=== PATIENT | male | born 1980 | race Caucasian/White ===

== ENCOUNTER 2016-10-12 13:46 | Emergency (ER) | payer SELFPAY ==
[2016-10-12 13:54] VITALS: BP 162/102; PULSE 70; TEMP 99.1; BMI 32.3
[2016-10-12] MEDS ORDERED: NS 1,000 ML IV ONE ×2 (14:02)
[2016-10-12] MEDS ORDERED: SODIUM CHLORIDE 0.9% 3 ML FLUSH FLUSH PRN (14:02)
[2016-10-12] MEDS ORDERED: ONDANSETRON HCL 4 MG/2 ML VIAL IV ONE (14:02)
[2016-10-12] MEDS ORDERED: HYDROmorphone 1 MG INJECTION IV ONE (14:02)
--- NOTE | 2016-10-12 14:09 | EDPRACDOC ---
- General Information Chief Complaint: Abdominal Pain Stated Complaint: KIDNEY STONE WITH RT ABD PAIN Time Seen by Provider: 10/12/16 13:57 Information Source: Patient Mode Of Arrival: Car Home Medications: Home Medications Ketorolac Tromethamine [Toradol] 10 mg PO Q6H PRN #15 tab 10/12/16 Ondansetron [Zofran Odt] 4 mg PO Q6H #20 tab.rapdis 10/12/16 Oxycodone Immediate Release [Oxycodone Immediate Release (OxyIR)] 5 mg PO Q4H PRN #15 tab 10/12/16 Allergies/Adverse Reactions: Allergies Allergy/AdvReac Type Severity Reaction Status Date / Time No Known Allergies Allergy Verified 10/12/16 13:54 - History of Present Illness Onset: 3 DAYS HPI: PT STATES STARTED HAVING RT FLANK AND LOWER QUAD PAIN WITH NAUSEA. PT STATES HAS LONG H/O KIDNEY STONES AND THIS FEELS THE SAME. Pain Location: Reports: RLQ, Flank (RT) Pain Context: Reports: Spontaneous Pain Severity: Moderate Pain Quality: Reports: Sharp, Stabbing Adult Abdominal History: Denies: Urolithiasis, Bowel Obstruction Modifying Factors: improves with: Nothing Associated Signs & Symptoms: Reports: Nausea, Urgency Oral Intake: Decreased Urinary Output: Decreased (AMOUNT GOING FREQUENTLY) ED Past Medical History - History Reviewed Yes Nurses notes reviewed and agree except as marked Travel Outside of [place] in the Last 3 Months?: No - Patient Medical History GI/ History: Reports: Kidney Stones, Gastroesophageal Reflux Psychological History: Denies: Depression - Social Medical History Smoking Status: Heavy tobacco smoker (5 or more cigarettes/day or daily pipe/ cigar) ETOH: None Substance Abuse: None Lives With: Other Lives In: Home EDM Review of Systems - Review of Systems ROS Negative Except as Marked: Yes All systems reviewed and were negative except as marked Constitutional: No Symptoms Reported. negative: Fever, Chills, Weakness, Fatigue, Loss of Appetite Eyes: No Symptoms Reported. negative: Redness, Blurred Vision, Double Vision, Discharge, Pain, Light Sensitive, Photophobia Ears: No Symptoms Reported. negative: Pain, Hearing Loss, Drainage, Ear Pulling Throat: No Symptoms Reported. negative: Pain, Swelling Nose: No Symptoms Reported. negative: Congestion, Bleeding, Discharge, Injection, Swelling, Deformity, Ecchymosis, Tender, Abrasion, Laceration Mouth: No Symptoms Reported. negative: Pain, Drooling Respiratory: No Symptoms Reported. negative: Cough, Brassy Cough, Barky Cough, Shortness of Breath, Wheezing, Hemoptysis Cardiovascular: No Symptoms Reported. negative: Chest Pain, Palpitations, Syncope, Edema, Orthopnea, PND, Skin Mottling, Cyanosis Gastrointestinal: Nausea. negative: Constipation, Diarrhea, Formula Intolerance , Melena, Pain, Vomiting Genitourinary: Frequency, Flank Pain (RT), Urgency to urinate. negative: Bleeding, Dysuria, Discharge, Hematuria, , Testicular Pain Neurological: No Symptoms Reported. negative: Headache, Dizziness, Seizure, Numbness, Weakness, Speech Difficulty, Gait Difficulty Musculoskeletal: No Symptoms Reported. negative: Neck, Chestwall, Ribs, Back, Shoulder, Arm, Elbow, Forearm, Wrist, Hand, Pelvis, Hip, Femur, Knee, Leg, Ankle , Foot Integumentary: No Symptoms Reported. negative: Itching, Rash, Bruising, Wound Allergic/Immunologic: No Symptoms Reported. negative: Hives, Itching Hematologic: No Symptoms Reported. negative: Lymphadenopathy, Easy Bruising, Easy Bleeding Endocrine: No Symptoms Reported. negative: Weight Gain, Weight Loss Psychiatric: No Symptoms Reported. negative: Anxiety, Depression, Hallucinations, Insomnia, Suicidal - Physical Exam Constitutional: Alert (Awake), Other (UNCOMFORTABLE) Oriented to: Time, Person, Place Last recorded Vital Signs: Last Vital Signs Temp 99.1 F 10/12/16 13:51 Pulse 70 10/12/16 13:51 Resp 20 10/12/16 13:51 BP 162/102 H 10/12/16 13:51 Pulse Ox 98 10/12/16 13:51 Oxygen Pulse Oxygen Saturation 98 O2 Device Oxygen Flow Rate Fraction of Inspired Oxygen ( FIO2) - HEENT Head: Normal ( normocephalic) Eye Exam: Normal (PERRL, EOMI, Sclera white) Oropharynx: Normal (Pharynx:Moist without exudate,Gums-no swelling) Tympanic Membrane: Normal ENT EAC: Normal TMJ: Normal Nose: No Symptoms Reported (septum midline) Neck: Normal (FROM, trachea at midline) - Respiratory/Cardiovascular Respiratory: Normal - CTA (BBS clear to auscultation without adventitious sounds ) Cardiovascular: Normal (RRR without murmur, gallop or rub) - GI Auscultation: Normal (NABS) Palpation: Normal (Soft,No rebound or guarding, non distended) Tenderness: Non tender Li's Sign: Negative - Musculoskeletal Back: Normal (Non-Tender) Extremities: Normal (Normal tone, Pulses 2+ No cyanosis or edema, FROM) - Integumentary Skin: Normal, Warm, Dry Lymphatics: Normal (no adenopathy) - Neurologic Memory Impaired: Normal Motor Function: Normal (Normal tone, Pulses 2+ No cyanosis or edema, FROM) Cranial Nerve: Normal (CN II-X11 intact sensation, strength 5/5) Cerebellar: Normal Mood Description: Normal Perception: Normal - Differential Diagnosis Constipation, Urolithiasis, Ureterolithiasis - Re-evaluation Re-evaluation 1 Re-evaluation Time: 15:46 (PT STATES THE PAIN IS BETTER, NO N/V AT THIS TIME. READY TO GO HOME) - Results 10/12/16 14:20 10/12/16 14:20 WBC 9.2 xk/uL (3.8-10.8) 10/12/16 14:20 RBC 4.78 xM/uL (4.70-6.10) 10/12/16 14:20 Hgb 14.0 g/dL (14.0-18.0) 10/12/16 14:20 Hct 40.4 % (42-52) L 10/12/16 14:20 MCV 85 fL (80-94) 10/12/16 14:20 MCH 29.3 pg (27-32) 10/12/16 14:20 MCHC 34.6 g/dl (33-36) 10/12/16 14:20 RDW 12.9 % (11.5-14.5) 10/12/16 14:20 Plt Count 136 xk/uL (130-400) 10/12/16 14:20 MPV 8.2 fL (7.4-10.4) 10/12/16 14:20 Neut % (Auto) 71.5 % (45-76) 10/12/16 14:20 Lymph % (Auto) 19.8 % (17-44) 10/12/16 14:20 [facility] % (Auto) 6.5 % (3-10) 10/12/16 14:20 Eos % (Auto) 1.7 % (0-5) 10/12/16 14:20 Baso % (Auto) 0.5 % (0-2) 10/12/16 14:20 Absolute Neuts (auto) 6.53 xk/uL (1.7-8.2) 10/12/16 14:20 Absolute Lymphs (auto) 1.75 xk/uL (0.65-4.75) 10/12/16 14:20 Sodium 142 mEq/L (137-146) 10/12/16 14:20 Potassium 4.0 mEq/L (3.5-5.1) 10/12/16 14:20 Chloride 106 mEq/L (98-107) 10/12/16 14:20 Carbon Dioxide 27 mMOL/L (22-33) 10/12/16 14:20 Anion Gap 13 mEq/L (8-16) 10/12/16 14:20 BUN 11 MG/DL (9-20) 10/12/16 14:20 Creatinine 1.00 MG/DL (0.66-1.25) 10/12/16 14:20 Estimated GFR (MDRD) > 60 mL/min (>=60) 10/12/16 14:20 Glucose 102 MG/DL (70-99) H 10/12/16 14:20 Calculated Osmolality 272 MOs/Kg (270-290) 10/12/16 14:20 Calcium 9.1 MG/DL (8.4-10.2) 10/12/16 14:20 Total Bilirubin 0.4 MG/DL (0.2-1.3) 10/12/16 14:20 AST 22 IU/L (17-59) 10/12/16 14:20 ALT 28 IU/L (21-72) 10/12/16 14:20 Alkaline Phosphatase 54 IU/L (38-126) 10/12/16 14:20 Total Protein 7.4 G/DL (6.3-8.2) 10/12/16 14:20 Albumin 4.1 G/DL (3.5-5.0) 10/12/16 14:20 Urine Color Yellow 10/12/16 13:48 Urine Clarity Hazy 10/12/16 13:48 Urine pH 5.0 (5.0-8.0) 10/12/16 13:48 Ur Specific [place] 1.035 10/12/16 13:48 Urine Protein 1+ (NEG/TRACE) H 10/12/16 13:48 Urine Glucose (UA) Neg (NEGATIVE) 10/12/16 13:48 Urine Ketones Neg (NEGATIVE) 10/12/16 13:48 Urine Occult Blood 2+ (NEG/TRACE) H 10/12/16 13:48 Urine Nitrite Neg (NEGATIVE) 10/12/16 13:48 Urine Bilirubin Neg (NEGATIVE) 10/12/16 13:48 Urine Urobilinogen 0.2 MG/DL (0-1) 10/12/16 13:48 Ur Leukocyte Esterase Trace (NEGATIVE) 10/12/16 13:48 Urine RBC Tntc (0-2) H 10/12/16 13:48 Urine WBC 2-5 (0-2) H 10/12/16 13:48 Urine Bacteria Few (NEG/FEW) 10/12/16 13:48 Urine Mucus Mod (NEG/OCC) H 10/12/16 13:48 Lab Results 10/12/16 10/12/16 10/12/16 14:20 14:20 13:48 WBC 9.2 RBC 4.78 Hgb 14.0 Hct 40.4 L MCV 85 MCH 29.3 MCHC 34.6 RDW 12.9 Plt Count 136 MPV 8.2 Neut % (Auto) 71.5 Lymph % (Auto) 19.8 [facility] % (Auto) 6.5 Eos % (Auto) 1.7 Baso % (Auto) 0.5 Absolute Neuts (auto) 6.53 Absolute Lymphs (auto) 1.75 Sodium 142 Potassium 4.0 Chloride 106 Carbon Dioxide 27 Anion Gap 13 BUN 11 Creatinine 1.00 Estimated GFR (MDRD) > 60 Glucose 102 H Calculated Osmolality 272 Calcium 9.1 Total Bilirubin 0.4 AST 22 ALT 28 Alkaline Phosphatase 54 Total Protein 7.4 Albumin 4.1 Urine Color Yellow Urine Clarity Hazy Urine pH 5.0 Ur Specific [place] 1.035 Urine Protein 1+ H Urine Glucose (UA) Neg Urine Ketones Neg Urine Occult Blood 2+ H Urine Nitrite Neg Urine Bilirubin Neg Urine Urobilinogen 0.2 Ur Leukocyte Esterase Trace Urine RBC Tntc H Urine WBC 2-5 H Urine Bacteria Few Urine Mucus Mod H - Diagnostic Imaging CT URO Image interpreted by: Radiologist 10/12/16 15:24 COMPARISON: 06/29/2016 FINDINGS: Lung bases clear. Moderate RIGHT hydronephrosis and proximal RIGHT hydroureter secondary to a 4 mm proximal RIGHT ureteral calculus image 56. Minimal RIGHT perinephric and periureteral edema. No additional urinary tract calcifications. Liver, spleen, pancreas, gallbladder, LEFT kidney, and adrenal glands normal appearance. Bladder and remaining ureters normal. Minimal prostatic enlargement. Small RIGHT inguinal hernia containing fat. Normal appendix. Stomach and bowel loops normal appearance. No mass, adenopathy, free air, free fluid or inflammatory process. Bones unremarkable. IMPRESSION: Moderate RIGHT hydronephrosis and hydroureter secondary to a 4 mm proximal RIGHT ureteral calculus. Small LEFT inguinal hernia containing fat. Decision Time to Discharge: 15:46 - Departure Disposition: Home Condition: Stable Final Diagnosis: Urolithiasis Qualifiers: Urinary calculus location: ureter Qualified Code(s): N20.1 - Calculus of ureter Instructions: Ureteral Stones (ED) Education/Counseling Given To: Patient Education/Counseling Given Regarding: Diagnosis, Treatment, Prognosis, Follow Up Referrals: None,No Provider [Primary Care Provider] - One Week Prescriptions: Ketorolac Tromethamine [Toradol] 10 mg PO Q6H PRN #15 tab PRN Reason: Pain Ondansetron [Zofran Odt] 4 mg PO Q6H #20 tab.rapdis Oxycodone Immediate Release [Oxycodone Immediate Release (OxyIR)] 5 mg PO Q4H PRN #15 tab PRN Reason: Pain Additional Instructions: RETURN FOR WORSE OR DIFFERENT SYMPTOMS. INCREASE PO FLUIDS.
[2016-10-12 14:22] LABS: LEUKOCYTES/URINE TRACE (NEGATIVE); NITRITE/URINE NEG (NEGATIVE); URINE OCCULT BLOOD 2+ (NEG/TRACE)
[2016-10-12 14:28] LABS: AUTOMATED BASOPHIL 0.5 % (0-2); AUTOMATED EOSINOPHIL 1.7 % (0-5); AUTOMATED LYMPH 19.8 % (17-44); AUTOMATED MONOCYTE 6.5 % (3-10); AUTOMATED NEUTROPHIL 71.5 % (45-76); MPV 8.2 fL (7.4-10.4)
[2016-10-12 14:31] LABS: RBC/URINE TNTC (0-2)
[2016-10-12 14:42] LABS: BLOOD UREA NITROGEN 11 MG/DL (9-20); CALCIUM 9.1 MG/DL (8.4-10.2); CALCULATED OSMOLALITY 272 MOs/Kg (270-290); CHLORIDE 106 mEq/L (98-107); GLUCOSE 102 MG/DL (70-99); SODIUM LEVEL 142 mEq/L (137-146); TOTAL PROTEIN 7.4 G/DL (6.3-8.2)
--- NOTE | 2016-10-12 15:09 | DIRPT ---
CLINICAL DATA: Sharp stabbing RIGHT flank pain for 3 days, nausea, history of kidney stones EXAM: CT ABDOMEN AND PELVIS WITHOUT CONTRAST TECHNIQUE: Multidetector CT imaging of the abdomen and pelvis was performed following the standard protocol without IV contrast. Sagittal and coronal MPR images reconstructed from axial data set. Oral contrast not administered COMPARISON: 06/29/2016 FINDINGS: Lung bases clear. Moderate RIGHT hydronephrosis and proximal RIGHT hydroureter secondary to a 4 mm proximal RIGHT ureteral calculus image 56. Minimal RIGHT perinephric and periureteral edema. No additional urinary tract calcifications. Liver, spleen, pancreas, gallbladder, LEFT kidney, and adrenal glands normal appearance. Bladder and remaining ureters normal. Minimal prostatic enlargement. Small RIGHT inguinal hernia containing fat. Normal appendix. Stomach and bowel loops normal appearance. No mass, adenopathy, free air, free fluid or inflammatory process. Bones unremarkable. IMPRESSION: Moderate RIGHT hydronephrosis and hydroureter secondary to a 4 mm proximal RIGHT ureteral calculus. Small LEFT inguinal hernia containing fat. Electronically Signed By: Henrique Black M.D. On: 10/12/2016 15:07
[2016-10-12] MEDS ORDERED: SODIUM CHLORIDE 0.9% 3 ML FLUSH FLUSH SCH (18:00)
== END 2016-10-12 16:05 | disposition home or self-care (01) ==
LOC: ED 13:46
DX: N20.1 Calculus of ureter (principal); F17.200 Nicotine dependence, unspecified, uncomplicated
CPT/HCPCS: 36415; 74176; 80053; 81001; 85025; 96361; 96374; 96375; 99283; J1170; J2405